=== PATIENT | male | born 1985 | race Caucasian/White ===

== ENCOUNTER 2021-09-21 13:13 | Emergency (ER) | payer SELFPAY ==
[2021-09-21 13:30] VITALS: BP 118/64; PULSE 80; TEMP 98.9; BMI 27.8
== END 2021-09-21 16:50 | disposition home or self-care (01) ==
LOC: FER 13:13
DX: S82.831A Other fracture of upper and lower end of right fibula, initial encounter for closed fracture (principal); X50.0XXA Overexertion from strenuous movement or load, initial encounter
CPT/HCPCS: 73610-TC-RT-FY; 73630-TC-RT-FY; 99283-25